=== PATIENT | male | born 1995 | race Two or more races ===

== ENCOUNTER 2024-06-12 09:15 | Outpatient (RCR) | payer MEDICAID, SELFPAY ==
--- NOTE | 2024-06-12 10:16 | PT.ODAYNRPT ---
PT Outpatient Daily Note OP Daily Note Outpatient Physical Therapy Treatment Date: 06/12/24 Visit Reasons: LEFT SHOULDER Subjective: Pt reports L shoulder is doing better, has returned to work. Objective: Please see flow sheet for ther ex list. Assessment: Progressing functional strengthening as per post op protocol. Plan: Continue with POc. Length of Time (minutes) of Treatment: 30 Minutes Procedure Charges Therapeutic Exercise 30 minutes: Yes
--- NOTE | 2024-07-10 09:24 | PT.ODS1RPT ---
PT OP Progress/Discharge Note Date of Service: 07/10/24 Progress Note/DC Note Progress Note/Discharge Note: DC Note Patient Information Visit Reasons: LEFT SHOULDER Service Discharge Date: 07/10/24 Status Assessment: Pt has been seen for 12 visits (eval + 11 visits). Pt last treated 06/12 and did not return to his last appt. At this time Pt will be d/c from care due to plan of care 07/05/24. Pt did not meet set goals in therapy; thank you for your referrals.
== END 2024-07-06 23:59 | disposition home or self-care (01) ==
LOC: CPTX 09:15
PROVIDERS: PCP Orthopaedic Surgery; Referring Provider Orthopaedic Surgery; Visit Provider Orthopaedic Surgery
DX: M25.512 Pain in left shoulder (principal); S43.492D Other sprain of left shoulder joint, subsequent encounter; W19.XXXD Unspecified fall, subsequent encounter
CPT/HCPCS: 97110

== ENCOUNTER → 2024-08-14 | Outpatient (CLI) | payer MEDICAID, SELFPAY ==
--- NOTE | 2024-08-14 13:44 | XR_ITS ---
Examination: PA lateral chest 2 views TECHNIQUE: Upright PA lateral chest 2 views Exam date and time: August 14, 2024 1353 hours INDICATIONS: Shortness of breath today. FINDINGS: Prominent hyperexpansion Normal heart size No pneumonia or pulmonary edema IMPRESSION: COPD with prominent hyperexpansion
== END | disposition home or self-care (01) ==
PROVIDERS: PCP Family Medicine; Referring Provider Family Medicine; Visit Provider Family Medicine
DX: J44.9 Chronic obstructive pulmonary disease, unspecified (principal)
CPT/HCPCS: 71046

== ENCOUNTER → 2025-03-24 | Outpatient (CLI) | payer MEDICAID, SELFPAY ==
--- NOTE | 2025-03-24 10:51 | XR_ITS ---
Examination: Knee bilateral, 6 views Technique: Knee AP, lateral, oblique each knee total 6 views Date and time of exam: March 24, 2025 1122 hours INDICATIONS: Bilateral knee pain beginning one year ago worse the last 3 months. FINDINGS: Adequate bone density. Bilateral mild narrowing medial joint spaces Bilateral minimal osteoarthritis patellofemoral joints No fractures IMPRESSION: Bilateral mild narrowing medial joint spaces Bilateral minimal osteoarthritis patellofemoral joints
== END | disposition home or self-care (01) ==
LOC: CDIM 10:40
PROVIDERS: PCP Family Medicine; Referring Provider Family Medicine; Visit Provider Family Medicine
DX: M17.0 Bilateral primary osteoarthritis of knee (principal); M25.862 Other specified joint disorders, left knee; M25.861 Other specified joint disorders, right knee
CPT/HCPCS: 73562

== ENCOUNTER → 2025-06-06 | Outpatient (CLI) | payer MEDICAID, SELFPAY ==
--- NOTE | 2025-06-06 10:00 | XR_ITS ---
Exam: MRI knee without contrast, right Date and time of exam: June 06, 2025, 1006 hours Technique: Multiple axial, coronal, and sagittal sections on the knee have been obtained. T2-Weighted sagittal, fat-suppressed images, TR 3,500, TE 62, T2 weighted coronal fat-saturated images, TR 3,500, TE 62 Proton density sagittal sections, TR 1800, TE 31. T-1 weighted coronal images, TR 524, TE 13.0 Findings: Medial meniscus anterior horn intact. Medial meniscus, body intact. Posterior horn medial meniscus intact. Lateral meniscus anterior horn is intact Lateral meniscus, body is intact Posterior horn lateral meniscus is intact Anterior cruciate ligament high-grade sprain Posterior cruciate ligament appears intact. Knee effusion is small. Quadriceps and patellar tendons appear intact. There is no evidence of tendinosis. Inflammatory change or fracture of Hoffa's fat pad is not seen. Medial patellar facet demonstrates no thinning. Lateral patellar facet cartilage demonstrates no thinning. Trochlear cartilage demonstrates no thinning. Marrow signal adequate. Medial collateral ligament appears intact. No meniscocapsular separation is seen. Illiotibial band and fibular collateral ligament are intact. Biceps femoris tendons appear intact. Medial femoral condylar articular cartilage demonstrates no thinning. Lateral femoral condylar articular cartilage demonstrates no thinning. Tibial plateau cartilage demonstrates no thinning. Impression: High-grade sprain anterior cruciate ligament
== END | disposition home or self-care (01) ==
LOC: SMRI 09:35
PROVIDERS: PCP Family Medicine; Referring Provider Family Medicine; Visit Provider Family Medicine
DX: S83.511A Sprain of anterior cruciate ligament of right knee, initial encounter (principal); X58.XXXA Exposure to other specified factors, initial encounter
CPT/HCPCS: 73721